=== PATIENT | male | born 1980 ===

== ENCOUNTER 2024-08-16 08:52 | Outpatient (CLI) | payer BC | END 2024-08-16 08:53 | disposition home or self-care (01) | LOC: CSHSLEEP 08:52 | PROVIDERS: ATTEND Family Medicine | DX: G47.10 Hypersomnia, unspecified (principal); G47.9 Sleep disorder, unspecified; R53.83 Other fatigue; R06.83 Snoring; G47.00 Insomnia, unspecified; I10 Essential (primary) hypertension; G47.33 Obstructive sleep apnea (adult) (pediatric); G25.89 Other specified extrapyramidal and movement disorders | CPT/HCPCS: 95810 ==